=== PATIENT | male | born 1955 | race Caucasian/White ===

== ENCOUNTER 2022-04-01 23:05 | Inpatient (IN) | payer MEDICARE, OTHER ==
[~2022-04-01] VITALS: Ht 177.8 cm; Wt 95.0 kg
[2022-04-02] LABS: BASOPHIL 0.9 % (0-2); EOSINOPHIL 1.3 % (0-7); HCT 45.2 % (42.0-52.0); HGB 16.2 g/dl (13.2-18.0); LYMPHOCYTE 39.6 % (15-48); MCH 30.4 pg (25.0-31.0); MCHC 35.8 g/dL (32.0-36.0); MCV 84.8 fL (78.0-100.0); MONOCYTE 6.7 % (0-12); MPV 9.7 fL (6.0-9.5); NEUTROPHIL 51.4 % (41-80); NRBC 0; PLT 153 K/uL (150-400); RBC 5.33 M/uL (4.70-6.00); RDW 12.8 % (11.5-14.0)
[2022-04-02 00:04] LABS: ALBUMIN 3.8 g/dL (3.4-5.0); ALKALINE PHOSHATASE 119 U/L (46-116); ALT 80 U/L (16-63); AMYLASE 49 U/L (25-115); AST 40 U/L (15-37); BILIRUBIN - TOTAL 0.7 mg/dL (0.2-1.0); BUN 20 mg/dL (7-18); BUN/CREAT RATIO (CALC) 22.5 RATIO; CO2 (BICARBONATE) 20 mmol/L (21-32); CREATININE 0.89 mg/dL (0.67-1.17); GLOBULIN (CALCULATION) 3.6 g/dL; LIPASE 100 U/L (73-393); TOTAL PROTEIN 7.4 g/dL (6.4-8.2)
[2022-04-02 00:05] LABS: CHLORIDE 98 mmol/L (98-107); GLUCOSE 457 mg/dL (74-106); POTASSIUM 3.2 mmol/L (3.5-5.1)
[2022-04-02 01:34] LABS: CORONAVIRUS 2019 SARS-COV-2 NEGATIVE (NEGATIVE); INFLUENZA A NAA NEGATIVE (NEGATIVE)
[2022-04-02 02:24] LABS: BILIRUBIN NEGATIVE (NEGATIVE); BLOOD NEGATIVE Ery/uL (NEGATIVE); CLARITY CLEAR (CLEAR); COLOR YELLOW (YELLOW); GLUCOSE (U) 3+ mg/dL (NORMAL); LEUKOCYTES NEGATIVE Leu/uL (NEGATIVE); NITRITE NEGATIVE (NEGATIVE); PROTEIN NEGATIVE (NEGATIVE); UROBILINOGEN 0.2 mg/dL (0.2-1.0); pH 5.5 (5.0-9.0)
[2022-04-02] MEDS ORDERED: METFORMIN HCL500 MG PO (04:55)
[2022-04-02] MEDS ORDERED: LOPRESSOR50 MG PO (04:56)
[2022-04-02] MEDS ORDERED: ALLOPURINOL 30300 MG PO (04:56)
[2022-04-02] MEDS ORDERED: PRINIVIL20 MG PO (04:57)
[2022-04-02] MEDS ORDERED: AMARYL 2MG TABLE2 MG PO (04:57)
[2022-04-02] MEDS ORDERED: ASPIRIN EC81 MG PO (04:58)
[2022-04-02 06:59] LABS: ALBUMIN 3.4 g/dL (3.4-5.0); BILIRUBIN - TOTAL 0.8 mg/dL (0.2-1.0); BUN/CREAT RATIO (CALC) 23.4 RATIO; CREATININE 0.77 mg/dL (0.67-1.17); GLOBULIN (CALCULATION) 3.3 g/dL; POTASSIUM 4.4 mmol/L (3.5-5.1); TOTAL PROTEIN 6.7 g/dL (6.4-8.2)
[2022-04-03 07:11] LABS: HBSAG SCREEN Negative (Negative); HCV AB 0.1 (0.0-0.9); HEP A AB, IGM Negative (Negative); HEP B CORE AB, IGM Negative (Negative)
[2022-04-03 09:30] LABS: BASOPHIL 0.3 % (0-2); EOSINOPHIL 0.6 % (0-7); LYMPHOCYTE 13.8 % (15-48); MCH 30.4 pg (25.0-31.0); MCHC 34.2 g/dL (32.0-36.0); MONOCYTE 7.5 % (0-12); MPV 9.4 fL (6.0-9.5); NEUTROPHIL 77.6 % (41-80); NRBC 0; RBC 4.27 M/uL (4.70-6.00); RDW 13.4 % (11.5-14.0); WBC 8.7 K/uL (4.0-10.5)
[2022-04-03 09:32] LABS: PLT 107 K/uL (150-400)
[2022-04-03 10:05] LABS: ALBUMIN 2.9 g/dL (3.4-5.0); BILIRUBIN - TOTAL 1.7 mg/dL (0.2-1.0); BUN/CREAT RATIO (CALC) 23.9 RATIO; CREATININE 0.88 mg/dL (0.67-1.17); GLOBULIN (CALCULATION) 2.8 g/dL; POTASSIUM 4.3 mmol/L (3.5-5.1); TOTAL PROTEIN 5.7 g/dL (6.4-8.2)
[2022-04-04 06:46] LABS: BASOPHIL 0.7 % (0-2); EOSINOPHIL 2.9 % (0-7); HCT 36.9 % (42.0-52.0); HGB 12.9 g/dl (13.2-18.0); LYMPHOCYTE 32.1 % (15-48); MCH 31.4 pg (25.0-31.0); MCV 89.8 fL (78.0-100.0); MONOCYTE 6.9 % (0-12); MPV 9.7 fL (6.0-9.5); NEUTROPHIL 57.2 % (41-80); NRBC 0; PLT 95 K/uL (150-400); RBC 4.11 M/uL (4.70-6.00); WBC 5.8 K/uL (4.0-10.5)
[2022-04-04 07:11] LABS: BUN/CREAT RATIO (CALC) 22.7 RATIO; CREATININE 0.88 mg/dL (0.67-1.17); POTASSIUM 3.8 mmol/L (3.5-5.1)
[2022-04-04] MEDS ORDERED: PERCOCET 5-3251 EACH PO (14:00)
[2022-04-04] MEDS ORDERED: AUGMENTIN 500-1 EACH PO (14:00)
== END 2022-04-04 15:32 | disposition home health service (06) | DRG 445 ==
LOC: FER 23:05 → FMS 04-02 03:00
PROVIDERS: Internal Medicine; Nurse Practitioner Acute Care; ADMIT Internal Medicine
PROC: 0F9430Z Drainage of Gallbladder with Drainage Device, Percutaneous Approach (ICD-10-PCS; principal; 2022-04-03)
DX: K80.00 Calculus of gallbladder with acute cholecystitis without obstruction (principal); E87.2 Acidosis; Z20.822 Contact with and (suspected) exposure to COVID-19; E11.65 Type 2 diabetes mellitus with hyperglycemia; I10 Essential (primary) hypertension; K21.9 Gastro-esophageal reflux disease without esophagitis; R74.01 Elevation of levels of liver transaminase levels; N28.89 Other specified disorders of kidney and ureter; E87.6 Hypokalemia; M10.9 Gout, unspecified; Z79.84 Long term (current) use of oral hypoglycemic drugs; Z79.899 Other long term (current) drug therapy
CPT/HCPCS: 36415; 75989; 76705; 78226; 80048; 80053; 80074; 81003; 82009; 82150; 83036; 83605; 83690; 84145; 84484; 85025; 86850; 86900; 86901; 87070; 87075; 87077; 87186; 87205; 93005; 94010; A9537; J1170; J2405; J2543; J3010; J7030; U0002

== ENCOUNTER 2022-04-21 09:33 | Day surgery (SDC) | payer MEDICARE, OTHER ==
[~2022-04-21] VITALS: Ht 177.8 cm; Wt 88.7 kg
[~2022-04-21 09:33] MED LIST: ALLOPURINOL 30300 MG PO; AMARYL 2MG TABLE2 MG PO; ASPIRIN EC81 MG PO; AUGMENTIN 500-1 EACH PO; LOPRESSOR50 MG PO; METFORMIN HCL500 MG PO; MIRALAX17 GM PO; PERCOCET 5-3251 EACH PO; PRINIVIL20 MG PO; PROBIOTIC1 EAC6 PO
[2022-04-21 10:14] LABS: HCT 43.1 % (42.0-52.0); HGB 15.1 g/dl (13.2-18.0); MCH 30.4 pg (25.0-31.0); MCV 86.9 fL (78.0-100.0); RBC 4.96 M/uL (4.70-6.00); RDW 12.7 % (11.5-14.0); WBC 6.6 K/uL (4.0-10.5)
[2022-04-21 10:40] LABS: ALBUMIN 3.5 g/dL (3.4-5.0); BILIRUBIN - TOTAL 1.1 mg/dL (0.2-1.0); BUN/CREAT RATIO (CALC) 33.3 RATIO; CREATININE 0.84 mg/dL (0.67-1.17); GLOBULIN (CALCULATION) 3.6 g/dL; POTASSIUM 4.3 mmol/L (3.5-5.1); TOTAL PROTEIN 7.1 g/dL (6.4-8.2)
--- NOTE | 2022-04-22 01:44 | NUR ---
209904/21/22 PATIENT ARRIVED TO [facility] AT APPROXIMATLEY 1400 PER DAY SHIFT RN. PATIENT HAD NOT YET VOIDED WHEN RN CAME ON SHIFT AT 1900. PATIENT WAS BLADDER SCANNED AT 2100 AND WAS FOUND TO HAVE 750ML OF URINE RETAINED IN THE BLADDER. STRAIGHT CATH WAS PREFORMED USING STRICT STERILE TECNIQUE. 700ML OF URINE WAS DRAINED. PATIENT TOLERATED PROCEDURE WELL, WILL CONTINUE TO MONITOR FOR RETURN OF SPONTANEOUS BLADDER FUNCTION.
[2022-04-22 07:06] LABS: BASOPHIL 0.7 % (0-2); EOSINOPHIL 2.8 % (0-7); HCT 36.9 % (42.0-52.0); HGB 12.7 g/dl (13.2-18.0); LYMPHOCYTE 22.7 % (15-48); MCHC 34.4 g/dL (32.0-36.0); MCV 87.2 fL (78.0-100.0); MONOCYTE 8.1 % (0-12); NEUTROPHIL 65.5 % (41-80); NRBC 0; PLT 123 K/uL (150-400); RBC 4.23 M/uL (4.70-6.00); RDW 12.6 % (11.5-14.0); WBC 5.4 K/uL (4.0-10.5)
[2022-04-22 07:34] LABS: ALBUMIN 2.8 g/dL (3.4-5.0); BILIRUBIN - TOTAL 0.8 mg/dL (0.2-1.0); BUN/CREAT RATIO (CALC) 22.2 RATIO; CREATININE 0.9 mg/dL (0.67-1.17); GLOBULIN (CALCULATION) 3.3 g/dL; POTASSIUM 4.1 mmol/L (3.5-5.1); TOTAL PROTEIN 6.1 g/dL (6.4-8.2)
[2022-04-22] MEDS ORDERED: AUGMENTIN 500-1 EACH PO (12:38)
[2022-04-22] MEDS ORDERED: PERCOCET 5-3251 EACH PO (12:38)
== END 2022-04-22 14:07 | disposition home health service (06) ==
LOC: FAS 09:33 → FMS 14:30 → FAS 04-22 14:07
PROVIDERS: Nurse Practitioner; Surgery
DX: K81.0 Acute cholecystitis (principal); K81.1 Chronic cholecystitis; K66.0 Peritoneal adhesions (postprocedural) (postinfection); E11.9 Type 2 diabetes mellitus without complications; I10 Essential (primary) hypertension; Z79.82 Long term (current) use of aspirin; Z79.84 Long term (current) use of oral hypoglycemic drugs; Z79.899 Other long term (current) drug therapy
CPT/HCPCS: 36415; 80053; 82150; 82962; 83036; 83690; 84145; 85025; 87088; 94010; J0694; J1170; J2250; J2370; J2405; J2543; J2704; J2710; J2795; J3010; J7120; Q0162

== ENCOUNTER 2022-05-14 13:08 | Emergency (ER) | payer MEDICARE, OTHER ==
[2022-05-14 15:44] LABS: BASOPHIL 0.6 % (0-2); EOSINOPHIL 1.4 % (0-7); HGB 15.2 g/dl (13.2-18.0); LYMPHOCYTE 31.5 % (15-48); MCHC 34.5 g/dL (32.0-36.0); MONOCYTE 8.8 % (0-12); MPV 10.3 fL (6.0-9.5); NEUTROPHIL 57.5 % (41-80); NRBC 0; PLT 123 K/uL (150-400); RBC 5.06 M/uL (4.70-6.00); RDW 13.5 % (11.5-14.0); WBC 5.1 K/uL (4.0-10.5)
[2022-05-14 16:01] LABS: CLARITY CLEAR (CLEAR); COLOR YELLOW (YELLOW); SPECIFIC GRAVITY 1.025 (1.001-1.030)
[2022-05-14 16:02] LABS: BILIRUBIN 1+ mg/dL (NEGATIVE); BLOOD NEGATIVE Ery/uL (NEGATIVE); GLUCOSE (U) 3+ mg/dL (NORMAL); LEUKOCYTES NEGATIVE Leu/uL (NEGATIVE); NITRITE NEGATIVE (NEGATIVE); PROTEIN TRACE (LOW) mg/dL (NEGATIVE)
[2022-05-14 16:04] LABS: MUCOUS TRACE
[2022-05-14 16:30] LABS: LACTIC ACID 1.1 mmol/L (0.4-1.9)
[2022-05-14 16:37] LABS: ALBUMIN 3.5 g/dL (3.4-5.0); BILIRUBIN - TOTAL 0.9 mg/dL (0.2-1.0); BUN/CREAT RATIO (CALC) 27.9 RATIO; CREATININE 0.68 mg/dL (0.67-1.17); GLOBULIN (CALCULATION) 3.3 g/dL; POTASSIUM 3.8 mmol/L (3.5-5.1); TOTAL PROTEIN 6.8 g/dL (6.4-8.2)
[2022-05-14] MEDS ORDERED: NORCO 5-325 TA1 EACH PO (22:28)
[2022-05-14] MEDS ORDERED: ONDANSETRON ODT4 MG PO (22:28)
[2022-05-14] MEDS ORDERED: PROTONIX 40MG T40 MG PO (22:28)
== END 2022-05-14 22:54 | disposition home or self-care (01) ==
LOC: FER 13:08
PROVIDERS: Emergency Medicine
DX: R10.9 Unspecified abdominal pain (principal); I10 Essential (primary) hypertension; E11.9 Type 2 diabetes mellitus without complications; Z79.82 Long term (current) use of aspirin; Z79.84 Long term (current) use of oral hypoglycemic drugs; Z79.899 Other long term (current) drug therapy; Z20.822 Contact with and (suspected) exposure to COVID-19; M79.605 Pain in left leg; M79.604 Pain in right leg
CPT/HCPCS: 36415; 74022; 80053; 81001; 83605; 83690; 85025; 93970; J2270; J2405; J7030; Q9967; U0002